=== PATIENT | male | born 1955 | race Caucasian/White ===

== ENCOUNTER 2023-03-24 07:14 | Day surgery (SDC) | payer MEDICARE, BC ==
[~2023-03-24 07:14] MED LIST: Sodium Chloride 0.9% 10 ML Syringe FLUSH PRN
[2023-03-24] MEDS ORDERED: Propofol 200 MG/20 ML SDV IV ONE (07:15)
[2023-03-24] MEDS ORDERED: Lidocaine 2% 100 MG/5 ML Syringe IVPUSH ONE (07:15)
[2023-03-24] MEDS: Lactated Ringers 1,000 ML IV SCH (08:15)
[2023-03-24] MEDS: Simethicone Drops 40 MG/0.6 ML 30 ML Bottle ONE (09:30)
== END 2023-03-24 10:53 | disposition home or self-care (01) ==
LOC: FB.SDS 07:14
PROVIDERS: ATTEND Surgery
DX: Z12.11 Encounter for screening for malignant neoplasm of colon (principal); I10 Essential (primary) hypertension; N40.1 Benign prostatic hyperplasia with lower urinary tract symptoms; E78.5 Hyperlipidemia, unspecified; E66.09 Other obesity due to excess calories; Z68.34 Body mass index [BMI] 34.0-34.9, adult; Z79.899 Other long term (current) drug therapy
CPT/HCPCS: A9270-GY; J2704; J7120